=== PATIENT | female | born 1995 | race Caucasian/White ===

== ENCOUNTER 2016-08-21 19:24 | Emergency (ER) | payer BC ==
[~2016-08-21] VITALS: Ht 162.6 cm; Wt 128.8 kg
[2016-08-21 19:24] VITALS: BP 153/91
[~2016-08-21 19:24] MED LIST: IBUP800T PO
--- NOTE | 2016-08-21 20:41 | PHYS DOC ---
General Chief Complaint: INSECT BITE Stated Complaint: SPIDER BITE Time Seen by MD: 20:34 Source: patient, other Problems: History of Present Illness Initial Comments Patient with male friend for possible insect bite. Patient states she was a refill restaurant last night which she thinks she was bitten by an insect of some kind. She noted a small pustule over the posterior aspect of the right arm but decided to observe. She said when she woke up this morning and a slight amount of redness, which increased over the course the day. She went to her primary care physician receive prescriptions for doxycycline and Bactroban. However, despite getting the prescriptions filled and take an initial dose of 2 tablets of doxycycline, the redness is continue to extend over the course of the evening, in which she smoked phone her own physician she was told to come back to the ER for further evaluation. Patient states she's felt hot today but has had no distinct fever or chills. There is no runny nose or sore throat. There is no chest pain or shortness of breath. She's had some nausea, but she attributes this to the antibiotics. There is no vomiting. There is no abdominal pain. There is no change amount or bladder habits. She's not had a menstrual period for the last 7 years because of Depo shots. She denies chance of . She has redness and swelling of the posterior aspect of the right upper arm. She has no distal complaints of weakness numbness or tingling within the right upper extremity, and no other focal extremity or neurologic complaints are noted. Other than seen her doctor with caries rendered, and using cold packs to the area, there's been nothing done for this at home and no fractures noted increase or decrease any symptoms the patient might have. Patient's past medical history is otherwise unremarkable. She is a nonsmoker and nonuser of ethanol. Allergies: Coded Allergies: gluten (Unverified Allergy, Unknown, 05/25/14) ibuprofen (Verified Allergy, Unknown, 08/21/16) Past Medical History Medical History: other Review of Systems All Other Systems: Reviewed and Negative Physical Exam General Appearance: WD/WN, no apparent distress Neck: full range of motion, supple, normal inspection Respiratory: lungs clear, normal breath sounds, no respiratory distress Cardiovascular: regular rate, rhythm, no edema Extremities: swelling, other Neurologic/Psychiatric: no motor/sensory deficits, alert, normal mood/affect, oriented x 3 Skin: warm/dry Lymphatic: no adenopathy Comments Generally this is a moderately obese white female in no acute distress. Vitals are as noted. Pertinent findings on physical exam shows the neck to be supple without adenopathy or JVD. There's no meningeal signs. Chest is clear to auscultation bilaterally. Cardiac vascular exam shows regular rate and rhythm without murmur. Extremities show the patient have a distinct area about 8 x 6 cm of distinct erythema, with central warmth and mild edema, over the posterior aspect of the right upper arm. There are some red streaks extending up towards the shoulder area. The area of erythema is relatively well-circumscribed, but does appear to be extended beyond marking lines drawn earlier in the day. There is no fluctuance and no signs of abscess. The area is moderately tender. There are no distal motor sensory vascular deficits noted within the right upper extremity. Patient is awake alert oriented and cooperative. Remainder of physical exam is clinically unremarkable. Orders, Labs, Meds Old charts note to prior ER visits for GI bleed as well as visits for cervical strain and insect bite. Labs show only mildly elevated white count at this time. CMP is unremarkable. 2200 Patient resting comfortably in the ER. Her Rocephin infusion is almost gone, and she says that while the redness is better she still has discomfort. Evaluation, the redness is much improved, much less fiery, and seems to almost receded generally within the marker lines drawn earlier today by the patient which it exceeded earlier. I discussed with the patient most likely diagnosis of localized cellulitis. We discussed home care. The doxycycline does not seem to agree with her, so we have asked her to switch to Septra. I'll give her prescription for Septra to be filled in the morning. As well as Lortab for pain and Zofran for any additional nausea or vomiting she might have. I did discuss with the patient home care including rest, elevation, and warm compresses the area. She voiced understanding of the return to the ER immediately for increasing redness, red streaks up the arm, fever, nausea vomiting, or other systemic complaints. Any these would suggest infection is getting out of hand we may need to admit her for antibiotics. If she continues to improve, however, think she can safely follow up with primary care. She seems very medically aware and I think will take appropriate care at home. She looks well, in no acute discomfort distress, okay for discharge home at this time with improving cellulitis. EDMUND HADLEY MD Aug 21, 2016 20:41
[2016-08-21] MEDS ORDERED: IV NORMAL SALINE 100ML 0 ML ONE (21:03)
[2016-08-21] MEDS ORDERED: CEFTRIAXONE SODIUM 1 GM VIAL IV ONE (21:03)
[2016-08-21] MEDS ORDERED: IV NORMAL SALINE 50ML 50 ML ONE (21:05)
[2016-08-21] MEDS ORDERED: CEFTRIAXONE SODIUM 1 GM in IV NORMAL SALINE 50ML 50 ML IV ONE (21:30)
[2016-08-21] MEDS ORDERED: ONDANSETRON ODT 4 MG TAB.RAPDIS ONE (21:38)
[2016-08-21 21:45] LABS: BASO # 0.1 x10^3/uL (0.0-0.2); BASO % 1 % (0-3); EOS # 0.2 x10^3/uL (0.0-0.7); EOS % 1 % (0-3); HEMATOCRIT 42.8 % (36.0-47.0); HEMOGLOBIN 13.9 g/dL (12.0-15.5); LYMPH # 3.6 x10^3/uL (1.0-4.8); LYMPH % 25 % (24-48); MEAN CORPUSCULAR HEMOGLOBIN 30 pg (25-35); MEAN CORPUSCULAR HGB CONC 33 g/dL (31-37); MEAN CORPUSCULAR VOLUME 92 fL (79-100); MONO # 0.9 x10^3/uL (0.0-1.1); MONO % 6 % (0-9); NEUT # 9.3 x10^3uL (1.8-7.7); NEUT % 67 % (31-73); PLATELET COUNT 383 x10^3/uL (140-400); RED BLOOD COUNT 4.65 x10^6/uL (3.50-5.40); RED CELL DISTRIBUTION WIDTH 12.9 % (11.5-14.5)
[2016-08-21] MEDS ORDERED: ONDANSETRON ODT 4 MG TAB.RAPDIS PO ONE (21:45)
[2016-08-21 21:56] LABS: ALBUMIN 3.4 g/dL (3.4-5.0); ALBUMIN/GLOBULIN RATIO 0.9 (1.0-1.7); CALCIUM 8.7 mg/dL (8.5-10.1); CREATININE 0.7 mg/dL (0.6-1.0); GFR 104.6; POTASSIUM 3.8 mmol/L (3.5-5.1); TOTAL BILIRUBIN 0.3 mg/dL (0.2-1.0); TOTAL PROTEIN 7.3 g/dL (6.4-8.2)
[2016-08-21] MEDS ORDERED: HYDROCODONE/APAP 7.5/325MG TABLET. PO ONE (22:30)
[2016-08-21] MEDS ORDERED: IV NORMAL SALINE 500ML 500 ML IV ONE (23:15)
[2016-08-22] MEDS ORDERED: ONDA4TAB10 PO (22:45)
[2016-08-22] MEDS ORDERED: MEDR150V IM (22:45)
[2016-08-24] MEDS ORDERED: AMOX1TAB61 PO (09:32)
== END 2016-08-21 22:52 | disposition home or self-care (01) ==
LOC: ER 19:24
DX: S40.861A Insect bite (nonvenomous) of right upper arm, initial encounter (principal); Z88.6 Allergy status to analgesic agent; Z88.8 Allergy status to other drugs, medicaments and biological substances; W57.XXXA Bitten or stung by nonvenomous insect and other nonvenomous arthropods, initial encounter; Y93.89 Activity, other specified; Y92.89 Other specified places as the place of occurrence of the external cause; Y99.8 Other external cause status
CPT/HCPCS: 36415; 80053; 85027; 87040; 96365; 99284; J0696; Q0162

== ENCOUNTER 2016-08-22 20:23 | Inpatient (IN) | payer BC ==
[~2016-08-22] VITALS: Ht 162.6 cm; Wt 128.6 kg
--- NOTE | 2016-08-22 20:27 | ED.ADGEN ---
Past History Past Medical History: Other Past Surgical History: No Surgical History Alcohol Use: Occasionally Drug Use: None Adult General Chief Complaint Chief Complaint ".. This arm is getting much worse.. more edema, .. more pain... I got bit eating dinner the other night... I did not see any spider.. but I felt this small bite or sting...and I ve been taking the antibiotics.. but it gotten much worse..." HPI HPI Patient is a 32 year old female who presents with above hx and complaints of insect bite. Areas approximately 8 x 10 cm on the underside her right arm. Distal neurovascular intact. No appreciable adenopathy. Marked inflammation and swelling erythema of the right arm. It has been approximate 8 years since last tetanus. Patient reports increased pain itching of cellulitic area. Patient advised she has been taking Bactrim as directed. Patient does work in healthcare. No specific history of previous MRSA. No history of immunosuppression. Review of Systems Review of Systems Constitutional: Subjective complaints of fever or chills [] Eyes: Denies change in visual acuity, redness, or eye pain [] HENT: Denies nasal congestion or sore throat [] Respiratory: Denies cough or shortness of breath [] Cardiovascular: No additional information not addressed in HPI [] GI: Denies abdominal pain, nausea, vomiting, bloody stools or diarrhea [] : Denies dysuria or hematuria [] Musculoskeletal: Denies back pain or joint pain [] Integument: Complaints of right arm cellulitis Neurologic: Denies headache, focal weakness or sensory changes [] Endocrine: Denies polyuria or polydipsia [] Family History Family History Noncontributory Current Medications Current Medications Current Medications Medications (Trade) Dose Ordered Sig/Bhavna Start Time Stop Time Status Last Admin Dose Admin Ceftriaxone Sodium (Rocephin) 2 gm STK-MED ONCE 08/22/16 21:03 08/22/16 21:04 DC Sodium Chloride (Iv Sodium Chloride 0.9% 100ml) 100 ml @ As Directed STK-MED ONCE 08/22/16 21:03 08/22/16 21:04 DC Allergies Allergies Allergies Coded Allergies Type Severity Reaction Last Updated Verified gluten Allergy Unknown 05/25/14 No ibuprofen Allergy Unknown 08/21/16 Yes Physical Exam Physical Exam Constitutional: Moderately acute distress, non-toxic appearance. [] HENT: Normocephalic, atraumatic, bilateral external ears normal, oropharynx moist, no oral exudates, nose normal. [] Eyes: PERRLA, EOMI, conjunctiva normal, no discharge. [] Neck: Normal range of motion, no tenderness, supple, no stridor. [] Cardiovascular:Heart rate regular rhythm, no murmur [] Lungs & Thorax: Bilateral breath sounds clear to auscultation [] Abdomen: Bowel sounds normal, soft, no tenderness, no masses, no pulsatile masses. Obese Skin: Warm, dry, no erythema, right arm cellulitis as per history of present illness Back: No tenderness, no CVA tenderness. [] Extremities: Right upper arm tenderness, no cyanosis, no clubbing, ROM intact, right upper arm edema. [] Neurologic: Alert and oriented X 3, normal motor function, normal sensory function, no focal deficits noted. [] Psychologic: Affect anxious, judgement normal, mood normal. [] Current Patient Data Vital Signs Vital Signs Date Time Temp Pulse Resp B/P Pulse Ox O2 Delivery O2 Flow Rate FiO2 08/22/16 20:25 97.7 93 20 99 Room Air EKG EKG [] Radiology/Procedures Radiology/Procedures [] Course & Med Decision Making Course & Med Decision Making Pertinent Labs and Imaging studies reviewed. (See chart for details). Discussed presentation, testing and treatment plan with . Will admit for IV antibiotics and further evaluation. [] Final Impression Final Impression 1. Insect Bite[]/ cellulitis non-responsive to outpatient oral therapy 2. Leukocytosis Problems: Dragon Disclaimer Dragon Disclaimer This electronic medical record was generated, in whole or in part, using a voice recognition dictation system. NICCI MEJIA MD Aug 22, 2016 20:27
[2016-08-22] MEDS ORDERED: IV NORMAL SALINE 100ML 100 ML ONE (21:03)
[2016-08-22] MEDS ORDERED: CEFTRIAXONE SODIUM 2 GM VIAL IV ONE (21:03)
[2016-08-22] MEDS ORDERED: DIPHENHYDRAMINE 50 MG/ML VIAL IV ONE (21:15)
[2016-08-22] MEDS ORDERED: DIPHTH,PERTUSS(ACELL),TET TOX 0.5 ML DISP.SYRIN. VAX IM ONE (21:15)
[2016-08-22] MEDS ORDERED: methylPREDNISolone SOD SUCC PF 125 MG/2 ML VIAL. IV ONE (21:15)
[2016-08-22] MEDS ORDERED: IV RINGERS SOLUTION,LACTATED 1,000 ML IV SCH (21:15)
[2016-08-22] MEDS ORDERED: CEFTRIAXONE SODIUM 2 GM in IV NORMAL SALINE 100ML 100 ML IV ONE (21:15)
[2016-08-22 21:57] LABS: BASO % 0 % (0-3); EOS # 0.2 x10^3/uL (0.0-0.7); EOS % 2 % (0-3); HEMATOCRIT 41.1 % (36.0-47.0); HEMOGLOBIN 13.5 g/dL (12.0-15.5); LYMPH % 33 % (24-48); MEAN CORPUSCULAR HEMOGLOBIN 30 pg (25-35); MEAN CORPUSCULAR HGB CONC 33 g/dL (31-37); MEAN CORPUSCULAR VOLUME 92 fL (79-100); MONO % 8 % (0-9); NEUT % 57 % (31-73); PLATELET COUNT 373 x10^3/uL (140-400); RED BLOOD COUNT 4.45 x10^6/uL (3.50-5.40); RED CELL DISTRIBUTION WIDTH 13.3 % (11.5-14.5); WHITE BLOOD COUNT 12.3 x10^3/uL (4.0-11.0)
[2016-08-22 22:11] LABS: CREATININE 0.8 mg/dL (0.6-1.0); GFR 89.7; POTASSIUM 3.8 mmol/L (3.5-5.1)
--- NOTE | 2016-08-22 22:27 | NUR ---
ADMISSION: The patient, CHIDI REAL, 21 y/o, F admitted by ADELIA MCKNIGHT DO, was given written information regarding hospital policies, unit procedures and contact persons. Pt arrived to room 119 via gurney, accompanied by [facility], ED RN, and family. Dx: Cellulitis to RUE. Pt states she has a bite on her Rt. upper arm that occurred Thursday night while she was eating dinner at [employer]. Pt saw PCP on morning and was given PO ABT. Reports area to RUE continued to worsen and she was then seen in the ED last noc, treated with IVAB and given new PO ABT. Pt states area even worse tonight, with redness erythema spreading outside of initial marked area. N/V today, episodes x2 and fever of 101 at 1900 which pt treated with Tylenol and Lortab for pain prior to arrival. Afebrile at this time with mild nausea, reports pain 5/10 numerically. PRN zofran and lortab given. PMH and home meds reviewed with patient. Pt reports Hx of Celiac disease and will require a gluten-free diet. VS assessed, noted elevated BP of 158/78. Pic taken of cellulitis and placed in chart, also wound care consult placed. Discussed POC with patient, V/U. Call light within reach. Will monitor. Valuables were checked and logged. Left in room with patient.
[2016-08-22 22:35] VITALS: BP 158/78
[2016-08-22] MEDS ORDERED: MEDR150V IM (22:45)
[2016-08-22] MEDS ORDERED: ONDA4TAB10 PO (22:45)
[2016-08-22] MEDS ORDERED: MVI, ADULT NO.4 WITH VIT K 10 ML, FOLIC ACID 1 MG, THIAMINE 100 MG in IV DEXTROSE 5 %-0... IV ONE ×4 (22:45)
[2016-08-22] MEDS: ONDANSETRON PF 4 MG/2 ML VIAL. IV PRN (23:01)
[2016-08-22] MEDS: HYDROCODONE/APAP 5/325MG TABLET. PO PRN (23:02)
--- NOTE | 2016-08-23 00:47 | ACF ---
Admission Criteria Forms CELLULITIS Clinical Indications for Admission to Inpatient Care (Place 'X' for any and all applicable criteria): Admission is indicated for ANY ONE of the following(1)(2)(3)(4)(5): [ ]I. Limb-threatening infection [ ]II. High-risk comorbid condition as indicated by ANY ONE of the following: [ ]a) Uncontrolled diabetes (eg, HbA1c greater than 10% (0.1)) [ ]b) Cirrhosis [ ]c) Neutropenia [ ]d) Asplenia [ ]e) Immunosuppression [ ]f) Symptomatic heart failure [ ]III. Failure of outpatient therapy as indicated by ALL of the following: [ ]a) Progression or no improvement after adequate trial (minimum of 48 hours, with longer period for stable lower extremity infection) [ ]b) Adequate antibiotic regimen as indicated by use of ANY ONE of the following: [ ]i) First-generation cephalosporin (e.g., cephalexin) [ ]ii) Antistaphylococcal penicillin (e.g., dicloxacillin) [ ]iii) Penicillin-allergic patient regimen (clindamycin, extended-spectrum fluoroquinolone, or doxycycline) [ ]iv) Resistant organism (eg, methicillin-resistant Staphylococcus aureus) regimen (6) [ ]c) Outpatient intravenous therapy regimen is not appropriate due to ANY ONE of the following. (7)(8)(9)(10): [ ]i) It was tried and was not successful (eg, progression of infection). [ ]ii) It is not available or cannot be arranged in a clinically appropriate time frame (e.g., the next day). [ ]iii) Clinical presentation (eg, acuity of infection, rapidity of progression, confirmed or suspected bacteremia) is judged to require ALL of the following: [ ]1) Immediate initiation of intravenous therapy ( eg, cannot wait for next day) [ ]2) Intensity of patient monitoring and observation (eg, vital sign measurement, checks for infection progression) that cannot be provided at other than inpatient level of care [ ]IV. Mental status changes [ ]V. Bacteremia [ ]. Hemodynamic instability [ ]VII. Suspected necrotizing soft tissue infection (e.g., gas in tissue)(11)( 12) [ ]VIII. Orbital infection (13)(14) [ ]IX. Associated surgical procedure (e.g., abscess drainage, debridement) not amenable to outpatient, emergency department, or observation care [ ]X. Cutaneous gangrene [ ]XI. High fever (temperature greater than 39.5 degrees C (103.1 degrees F) (oral)) not responsive to outpatient, emergency department, or observation care therapy [X]XIII. Inpatient admission required rather than observation care (Also use Cellulitis: Observation Care as appropriate) because of ANY ONE of the following : [ ]a) Periorbital or perineal infection that is severe or worsening [ ]b) Severe pain requiring acute inpatient management [ ]c) IV fluid to replace significant ongoing (e.g., for over 24 hours) losses (greater than 3L/m2 per day) [ ]d) Compartment syndrome monitoring (17) [ ]e) Strict or protective (eg, laminar flow) isolation [ ]f) Urgent debridement or skin grafting [ ]g) Bone or joint debridement [ ]h) Immediate inpatient surgery [X]i) Other condition, treatment or monitoring requiring inpatient admission Extended stay beyond goal length of stay may be needed for (1)(18): [ ]a) Necrotizing soft tissue infection or fasciitis [ ]b) Gram-negative infection [ ]c) Methicillin-resistant Staphylococcal aureus (MRSA) infection [ ]d) Peripheral venous insufficiency with cellulitis [ ]e) Extensive edema [ ]f) Sepsis or continued Hemodynamic instability [ ]g) Continued high fever or mental status change [ ]h) Bacteremia [ ]i) Active serious comorbid conditions ( eg, heart failure, renal insufficiency) The original [employer] content created by [employer] has been revised. The portions of the content which have been revised are identified through the use of italic text or in bold, and [facility] has neither reviewed nor approved the modified material. All other unmodified content is copyright [employer] Please see references footnoted in the original [facility] edition 2016 Admission Criteria Met?: Yes BRANDY MOCTEZUMA Aug 23, 2016 00:47
[2016-08-23] MEDS: ONDANSETRON PF 4 MG/2 ML VIAL. IV PRN (03:41)
[2016-08-23 05:16] VITALS: BP 124/84
[2016-08-23] MEDS: HYDROCODONE/APAP 5/325MG TABLET. PO PRN ×2 (05:30→20:32)
[2016-08-23 07:09] LABS: BASO % 0 % (0-3); EOS % 0 % (0-3); HEMATOCRIT 40.4 % (36.0-47.0); HEMOGLOBIN 13.2 g/dL (12.0-15.5); LYMPH # 1.1 x10^3/uL (1.0-4.8); LYMPH % 11 % (24-48); MEAN CORPUSCULAR HEMOGLOBIN 30 pg (25-35); MEAN CORPUSCULAR HGB CONC 33 g/dL (31-37); MEAN CORPUSCULAR VOLUME 92 fL (79-100); MONO # 0.1 x10^3/uL (0.0-1.1); MONO % 1 % (0-9); NEUT # 8.6 x10^3uL (1.8-7.7); NEUT % 88 % (31-73); PLATELET COUNT 357 x10^3/uL (140-400); RED BLOOD COUNT 4.39 x10^6/uL (3.50-5.40); RED CELL DISTRIBUTION WIDTH 13.1 % (11.5-14.5); WHITE BLOOD COUNT 9.7 x10^3/uL (4.0-11.0)
[2016-08-23 07:21] LABS: ALBUMIN 3.2 g/dL (3.4-5.0); ALBUMIN/GLOBULIN RATIO 0.7 (1.0-1.7); CALCIUM 8.9 mg/dL (8.5-10.1); CREATININE 0.8 mg/dL (0.6-1.0); GFR 89.7; TOTAL BILIRUBIN 0.3 mg/dL (0.2-1.0); TOTAL PROTEIN 7.8 g/dL (6.4-8.2)
[2016-08-23] MEDS ORDERED: IV NORMAL SALINE 250ML 250 ML ONE (08:35)
[2016-08-23] MEDS ORDERED: CEFTRIAXONE SODIUM 1 GM in IV NORMAL SALINE 50ML 50 ML IV SCH (09:00)
[2016-08-23] MEDS ORDERED: DIPHENHYDRAMINE 50 MG/ML VIAL IV SCH ×2 (09:00)
[2016-08-23] MEDS ORDERED: PIP/TAZO PER PHARMACY MC PRN (09:30)
[2016-08-23] MEDS ORDERED: VANCOMYCIN PER PHARMACY MC PRN (09:30)
[2016-08-23] MEDS ORDERED: VANCOMYCIN 2 GM in IV NORMAL SALINE 500ML 500 ML IV ONE (10:00)
[2016-08-23] MEDS: HYDROCORTISONE 2.5% TOPICAL OINTMENT 30GM TUBE. TP SCH (11:07)
[2016-08-23] MEDS: PIPERACILLIN/TAZOBACTAM 3.375 GM in IV NORMAL SALINE 50ML 50 ML IV SCH ×3 (11:07→23:27)
[2016-08-23] MEDS: ONDANSETRON ODT 4 MG TAB.RAPDIS PO PRN (12:37)
[2016-08-23] MEDS: DIPHENHYDRAMINE 50 MG/ML VIAL IV SCH ×3 (12:37→20:27)
--- NOTE | 2016-08-23 12:48 | HP ---
ADMIT DATE: 08/23/2016 REASON FOR ADMISSION: Swollen right arm/cellulitis/failed outpatient treatment. HISTORY OF PRESENT ILLNESS: This is a 32-year-old female who [facility]. She felt a bite on her arm, but did not think too much about it. It did get quite big and swollen. She went to health care provider prescribed antibiotic and cream. She states it doubled inside. It was severe and itchy. She went to the Emergency Room and got some IV antibiotics and was sent back home. Yesterday, it just came too much to tolerate. The arm was getting bigger and the itching was pretty bad. PAST MEDICAL HISTORY: Celiac disease, which she follows a gluten-free diet. ALLERGIES: IBUPROFEN MAY GIVES HER AN UPSET STOMACH AND SHE IS ALLERGIC TO GLUTEN OBVIOUSLY. MEDICATIONS: Depo shot and Zofran as needed. FAMILY HISTORY: Positive for heart disease in father and ovarian cancer in mother. HABITS: No tobacco. No alcohol. 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 REVIEW OF SYSTEMS: Negative except for the arm. OBJECTIVE: VITAL SIGNS: Temperature 98, pulse 77, respirations 18, blood pressure 124/84, pulse ox 97, height is 64 inches, and weight 283 pounds. HEENT: The patient's hearing is normal. HEENT: External canals are clear. Her eyes are clear. Nose is patent. Throat was clear. Tongue was moist. NECK: Supple. LUNGS: Clear to auscultation. CARDIOVASCULAR: Regular rhythm and rate. EXTREMITIES: Without edema. The right arm has picture on her chart, but the right upper arm with considerable soft tissue swelling and erythema with a bite entry noted, but no eschar or any type of necrosis. LABORATORY DATA: White count was 12.3 yesterday and it is now 9.7, hemoglobin 13.2, and hematocrit 40.4. Chemistry, glucose was 155 after getting dose of steroids and albumin is 3.2. Blood culture is pending. ASSESSMENT: 1. Cellulitis of the right arm. 2. Status post bite. 3. Mild protein malnutrition. 4. Hyperglycemia secondary to steroids. PLAN: Continue to piperacillin and vancomycin. Treat for pain and continue with Benadryl for the severe itching and strongly discouraged from scratching. ADELIA MCKNIGHT DO DR: Michaela JOB#: [id number] / [id number]
[2016-08-23 15:05] VITALS: BP 121/73
[2016-08-23 18:55] VITALS: BP 147/88
[2016-08-23] MEDS ORDERED: VANCOMYCIN 2 GM in IV NORMAL SALINE 500ML 500 ML IV SCH (19:00)
[2016-08-23 23:30] VITALS: BP 113/87
[2016-08-24] MEDS: PIPERACILLIN/TAZOBACTAM 3.375 GM in IV NORMAL SALINE 50ML 50 ML IV SCH ×2 (05:26→11:16)
[2016-08-24 05:30] VITALS: BP 103/67
[2016-08-24] MEDS: ONDANSETRON ODT 4 MG TAB.RAPDIS PO PRN (06:05)
[2016-08-24] MEDS: HYDROCORTISONE 2.5% TOPICAL OINTMENT 30GM TUBE. TP SCH (08:44)
[2016-08-24] MEDS: DIPHENHYDRAMINE 50 MG/ML VIAL IV SCH ×2 (08:44→11:17)
[2016-08-24] MEDS ORDERED: AMOX1TAB61 PO (09:32)
[2016-08-24] MEDS: HYDROCODONE/APAP 5/325MG TABLET. PO PRN (11:24)
--- NOTE | 2016-08-24 11:43 | DS ---
DATE OF DISCHARGE: 08/24/2016 DISCHARGE DIAGNOSES: 1. Right upper arm cellulitis secondary to bite of unknown etiology. 2. Status post bite. 3. Mild protein malnutrition. 4. Hyperglycemia secondary to steroids. 5. Morbid obesity. HOSPITAL COURSE: The patient is a 21-year-old female who failed outpatient antibiotics after receiving a bite on 08/21/2016 in the evening with subsequent right arm cellulitis. She was given vancomycin and had a reaction to it. That was discontinued. She did very well with Zosyn and on the day of discharge, her arm was not doing very well. PHYSICAL EXAMINATION: VITAL SIGNS: Blood pressure 103/67, pulse 83, respirations 20, temperature 98.4, pulse ox 98% on room air. EXTREMITIES: Right arm: The erythema is almost completely gone, minimal swelling now compared to the left arm. LUNGS: Clear. CARDIOVASCULAR: Regular rhythm and rate. DISPOSITION: To home. DISCHARGE INSTRUCTION: She may continue with p.o. Benadryl. She will go on p.o. Augmentin and may return to work tomorrow and will see her primary care doctor as well. ADELIA MCKNIGHT DO DR: STEPHAN/verna JOB#: [id number] / [id number]
== END 2016-08-24 12:25 | disposition home or self-care (01) | DRG 872 ==
LOC: ER 20:23 → 1 SOUTH 21:13 → OBSVTOIN 08-23 09:50
PROVIDERS: ADMIT Family Medicine; ATTEND Family Medicine
DX: A41.9 Sepsis, unspecified organism (principal); L03.113 Cellulitis of right upper limb; E44.1 Mild protein-calorie malnutrition; Z68.42 Body mass index [BMI] 45.0-49.9, adult; S40.861A Insect bite (nonvenomous) of right upper arm, initial encounter; R73.9 Hyperglycemia, unspecified; D72.829 Elevated white blood cell count, unspecified; E66.01 Morbid (severe) obesity due to excess calories; W57.XXXA Bitten or stung by nonvenomous insect and other nonvenomous arthropods, initial encounter; T38.0X5A Adverse effect of glucocorticoids and synthetic analogues, initial encounter; Z80.41 Family history of malignant neoplasm of ovary; Z88.1 Allergy status to other antibiotic agents; Z91.018 Allergy to other foods; Y93.89 Activity, other specified; Y92.008 Other place in unspecified non-institutional (private) residence as the place of occurrence of the external cause; Y99.8 Other external cause status
CPT/HCPCS: 36415; 80048; 80053; 82550; 84484; 85027; 87040; 90715; G0378; G0379; J0696; J1200; J2405; J2543; J2930; J3370; J7040; J7050; J7120; Q0162; 99285-25

== ENCOUNTER 2017-02-07 22:09 | Emergency (ER) | payer BC ==
[~2017-02-07] VITALS: Ht 152.4 cm; Wt 128.0 kg
[~2017-02-07 22:09] MED LIST changes: +AMOX1TAB61 PO; -IBUP800T PO; +IBUP800T19 PO; +MEDR150V IM; +ONDA4TAB10 PO
[2017-02-07 22:29] VITALS: BP 141/96
[2017-02-07] MEDS ORDERED: IV NORMAL SALINE 1,000ML 1,000 ML IV ONE (22:45)
[2017-02-07] MEDS ORDERED: diphenhydrAMINE 50 MG/ML VIAL IVP ONE (22:45)
[2017-02-07] MEDS ORDERED: KETOROLAC 30 MG/ML VIAL. IV ONE (22:45)
[2017-02-07] MEDS ORDERED: PROCHLORPERAZINE 10 MG/2 ML VIAL. IV ONE (22:45)
[2017-02-07 23:17] LABS: BILIRUBIN,URINE NEG (NEG); CLARITY,URINE CLEAR; COLOR,URINE YELLOW; GLUCOSE,URINE NEG (NEG)
[2017-02-07 23:18] LABS: BACTERIA,URINE 0 /HPF (0-FEW); NITRITE,URINE NEG (NEG); RBC,URINE 0 /HPF (0-2); SQUAMOUS EPITHELIAL CELL,UR FEW /LPF; UROBILINOGEN,URINE 0.2 mg/dL (0.2 mg/dL); WBC,URINE 0 /HPF (0-4)
--- NOTE | 2017-02-07 23:50 | PHYS DOC ---
Past History Past Medical History: No Pertinent History, Other Past Surgical History: Other Alcohol Use: Occasionally Drug Use: None Adult General Chief Complaint Chief Complaint: HEADACHE HPI HPI Patient is a 21 year old female who presents with headache. The patient reports 4 day history of dull throbbing headache to the top of her head. She states pain was gradual in onset, not the worst headache of her life, though headaches are unusual for her. She reports photophobia/phonophobia, nausea. Denies vision changes, vomiting, extremity numbness/weakness. She states symptoms began the same day that she was stung by a wasp on her right wrist. She was seen in a different ED at that time, has been taking prednisone & keflex which have well controlled the erythema & swelling she experienced locally on her wrist. She states between doses there is some mild spreading of the erythema which resolves when she takes the next dose of medications. Review of Systems Review of Systems Constitutional: Denies fever or chills Eyes: Denies change in visual acuity HENT: Denies nasal congestion or sore throat Respiratory: Denies cough or shortness of breath Cardiovascular: Denies chest pain or edema GI: Reports nausea. Denies abdominal pain, vomiting : Denies dysuria or hematuria Musculoskeletal: Denies back pain or joint pain Integument: Reports insect sting with allergic reaction. Neurologic: Reports headache, denies focal weakness or sensory changes Current Medications Current Medications Current Medications Medications (Trade) Dose Ordered Sig/Bhavna Start Time Stop Time Status Last Admin Dose Admin Diphenhydramine HCl (Benadryl) 25 mg 1X ONCE 02/07/17 22:45 02/07/17 23:42 DC 02/07/17 23:10 25 MG Ketorolac Tromethamine (Toradol) 30 mg 1X ONCE 02/07/17 22:45 02/07/17 23:42 DC 02/07/17 23:09 30 MG Prochlorperazine Edisylate (Compazine) 10 mg 1X ONCE 02/07/17 22:45 02/07/17 23:42 DC 02/07/17 23:10 10 MG Sodium Chloride 1,000 ml @ 1,000 mls/hr 1X ONCE 02/07/17 22:45 02/07/17 23:44 DC 02/07/17 22:45 1,000 MLS/HR Allergies Allergies Allergies Coded Allergies Type Severity Reaction Last Updated Verified gluten Allergy Unknown 05/25/14 No ibuprofen Allergy Unknown 08/21/16 Yes vancomycin Allergy Unknown 08/23/16 Yes Physical Exam Physical Exam Constitutional: morbidly obese, no acute distress, non-toxic appearance. HENT: Normocephalic, atraumatic, bilateral external ears normal, oropharynx moist, nose normal. Eyes: PERRLA, EOMI, conjunctiva normal, no discharge. Neck: supple, no stridor. no meningismus Cardiovascular: RRR, no murmurs, no edema. Lungs & Thorax: LCTAB, no wheezing, no respiratory distress. Abdomen: soft, nontender, nondistended. Skin: right wrist with insect sting, very minimal erythema & swelling. Back: No tenderness. Extremities: No tenderness, no edema. Neurologic: Alert and oriented X 3, CN2-12 grossly intact, symmetric strength/ sensation to upper & lower extremities, no focal deficits noted. Psychologic: Affect normal, judgement normal, mood normal. Current Patient Data Vital Signs Vital Signs Date Time Temp Pulse Resp B/P (MAP) Pulse Ox O2 Delivery O2 Flow Rate FiO2 02/07/17 22:29 98.4 94 20 99 Room Air Lab Results Laboratory Tests Test 02/07/17 22:45 02/07/17 23:06 Urine Collection Type Void Urine Color Yellow Urine Clarity Clear Urine pH 5.5 Urine Specific [place] >=1.030 Urine Protein Neg (NEG-TRACE) Urine Glucose (UA) Neg mg/dL (NEG) Urine Ketones (Stick) Neg mg/dL (NEG) Urine Blood Trace (NEG) Urine Nitrite Neg (NEG) Urine Bilirubin Neg (NEG) Urine Urobilinogen Dipstick 0.2 mg/dL (0.2 mg/dL) Urine Leukocyte Esterase Neg (NEG) Urine RBC 0 /HPF (0-2) Urine WBC 0 /HPF (0-4) Urine Squamous Epithelial Cells Few /LPF Urine Bacteria 0 /HPF (0-FEW) POC Urine HCG, Qualitative hcg negative (Negative) EKG EKG [] Radiology/Procedures Radiology/Procedures [] Course & Med Decision Making Course & Med Decision Making Pertinent Labs and Imaging studies reviewed. (See chart for details) The patient presents with headache. No concerning symptoms. Gave IV fluids, toradol, compazine, benadryl. UA negative for infection, not . She felt better after treatment. Would not recommend discontinuation of prescription meds for wasp sting as they are controlling symptoms & no indication that these symptoms are caused by medications. Recommend rest, hydration, tylenol/ibuprofen for pain, follow up with primary care in 2-3 days. Come back for worst headache of her life, sudden onset severe headache, uncontrolled vomiting, focal neuro deficit, any otherwise worsening condition. Discharged home in stable condition. [] Dragon Disclaimer Dragon Disclaimer This chart was dictated in whole or in part using Voice Recognition software in a busy, high-work load, and often noisy Emergency Department environment. It may contain unintended and wholly unrecognized errors or omissions. Departure Departure: Impression: Primary Impression: Headache Disposition: HOME, SELF-CARE Condition: IMPROVED Referrals: JOSH RIZVI MD (PCP) Patient Instructions: General Headache Without Cause, [id number] Additional Instructions: You were seen in the emergency department today for headache. Please rest, drink fluids to stay hydrated, use tylenol or ibuprofen for headache. We recommend continuing medications for your wasp sting reaction. Follow up with a primary care doctor in 2-3 days if symptoms continue. Come back for high fever, sudden onset of severe headache, uncontrolled vomiting, numbness or weakness in arms or legs, any otherwise worsening condition. NEVILLE VALENCIA MD Feb 07, 2017 23:50
== END 2017-02-08 | disposition home or self-care (01) ==
LOC: ER 22:09
DX: R51 Headache (principal); R11.0 Nausea; Z88.1 Allergy status to other antibiotic agents; Z88.6 Allergy status to analgesic agent; Z88.8 Allergy status to other drugs, medicaments and biological substances
CPT/HCPCS: 81001; 81025; 96361; 96374; 96375; 99284; J0780; J1200; J1885; J7030